=== PATIENT | female | born 1975 | race American Indian/Alaskan Native ===

== ENCOUNTER 2016-08-02 08:24 | Outpatient (CLI) | payer OTHER ==
--- NOTE | 2016-08-02 10:31 | Mammography Report ---
Screening mammogram: Baseline examination. Routine views demonstrate a heterogeneously dense fibroglandular pattern. In the superior left MLO view there is a focal density with questionable spiculation. In the right CC view there are a couple of nodules in the lateral right breast which are not clearly identified in the lateral projection. Scattered benign-appearing calcifications are present. CAD used. Impressions: Bilateral asymmetries. Recommendation: Additional compression imaging bilaterally with ultrasound, as needed. BI-RADS CATEGORY: 0 = Needs additional imaging evaluation ACR BI-RADS MAMMOGRAPHIC CODES: 0 = Needs additional imaging evaluation; 1 = Negative; 2 = Benign; 3 = Probably benign; 4 = Suspicious; 5 = Malignant; 6 = Known biopsy-proven malignancy COMMENT: 1. Dense breast tissue, i.e., adenosis, fibrocystic changes, etc., may obscure an underlying neoplasm. 2. Approximately 10% of cancers are not detected with mammography. 3. A negative mammography report should not delay biopsy if a clinically suspicious mass is present.
== END 2016-08-02 08:25 | disposition home or self-care (01) ==
LOC: SPVWC 08:24
PROVIDERS: ATTEND Family Medicine
DX: Z12.31 Encounter for screening mammogram for malignant neoplasm of breast (principal)
CPT/HCPCS: 77067; G0202

== ENCOUNTER 2016-08-24 08:05 | Outpatient (CLI) | payer OTHER ==
--- NOTE | 2016-08-24 09:39 | Mammography Report ---
Spot compression magnification of circumscribed density measuring 8 mm in diameter upper outer anterior right breast followed by sonographic examination. Spot compression magnification view of upper mid left breast density measuring 6 mm in diameter followed by sonographic examination: Sonographic examination of the entire right and left breast was performed. Findings: Right breast: On spot magnification persistence of circumscribed density noted upper outer anterior right breast without spiculation or microcalcification. Sonographic examination reveals 0.5 cm circumscribed complex cyst or lymph node at 9:00 position 5 cm from nipple which does not appear to correspond to the density seen on the mammogram. There is dilated subareolar duct noted measuring 1.5 cm in length with echogenic material within the duct probably debris. No distinct mass is seen. At the right axilla there is well defined circumscribed mass with central echogenicity probably suggestive of a lymph node or complex cyst. Left breast. On spot compression magnification view 0.6 cm circumscribed density is again identified in the upper left breast without spiculation or microcalcification. On sonographic examination there is no corresponding mass identified. On sonogram there is dilated duct noted at left breast 8:00 position 3 cm from nipple with echogenic debris within the duct. No mass. On sonogram there is benign lymph node/complex cyst noted at 8:00 position 3 cm from nipple measuring 1.1 x 0.4 cm. There is lymph node/complex cyst noted at left axilla measuring 1.3 cm in diameter. Impression: Benign-appearing densities on spot compression magnification views left breast with probably benign sonographic findings not related to density seen on mammogram. 6 month followup with mammogram and sonogram recommended. BI-RADS CATEGORY: 3 = Probably benign ACR BI-RADS MAMMOGRAPHIC CODES: 0 = Needs additional imaging evaluation; 1 = Negative; 2 = Benign; 3 = Probably benign; 4 = Suspicious; 5 = Malignant; 6 = Known biopsy-proven malignancy COMMENT: 1. Dense breast tissue, i.e., adenosis, fibrocystic changes, etc., may obscure an underlying neoplasm. 2. Approximately 10% of cancers are not detected with mammography. 3. A negative mammography report should not delay biopsy if a clinically suspicious mass is present. COMMENT: Patient follow-up letters are generated in [employer].
== END 2016-08-24 08:06 | disposition home or self-care (01) ==
LOC: SPVWC 08:05
PROVIDERS: ATTEND Family Medicine
DX: N64.89 Other specified disorders of breast (principal)
CPT/HCPCS: 76641; G0204; 77066

== ENCOUNTER 2017-03-14 08:23 | Outpatient (CLI) | payer OTHER ==
--- NOTE | 2017-03-14 12:47 | Mammography Report ---
BILATERAL DIGITAL DIAGNOSTIC MAMMOGRAM and BILATERAL BREAST ULTRASOUND: 03/14/17 08:23:00 CLINICAL: Six month followup of mammographic asymmetries and ultrasound findings COMPARISON:08/24/16 FINDINGS: Bilateral spot compression views were performed. Satisfactory placement of right asymmetries in satisfactory effacement of left upper outer asymmetries. An oval circumscribed left inner asymmetry persists with spot compression and appears to be slightly below the nipple on the MLO view. Ultrasound of the right breast demonstrated a benign intraparenchymal lymph node at 9 o'clock 7 cm from the nipple measuring 6 x 4 x 6 mm and a benign intraparenchymal lymph node at 10 o'clock 9 cm from the nipple measuring 8 x 5 x 6 mm. No solid mass or shadowing. The previous described subareolar dilated duct at 9 o'clock is not identified on this exam. Ultrasound of the left breast (including all four quadrants and the retroareolar area) was performed and demonstrated normal an oval slightly irregular complex cyst versus solid mass at 9 o'clock 4.5 cm from the nipple. It correlates with a lesion that was identified previously but has a slightly different shape. It measures 1.5 x 0.6 x 0.9 cm and also correlates with the mammographic density on today's exam. IMPRESSION: A probably benign complex cyst versus solid mass of the left breast at 9 o'clock 4 cm from the nipple. Negative right breast with 2 benign intraparenchymal lymph nodes. BI-RADS CATEGORY: 3 - - Probably Benign RECOMMENDATION: Six month followup left mammogram and left breast ultrasound. ACR BI-RADS MAMMOGRAPHIC CODES: 0 = Needs additional imaging evaluation; 1 = Negative; 2 = Benign; 3 = Probably benign; 4 = Suspicious; 5 = Malignant; 6 = Known biopsy-proven malignancy COMMENT: 1. Dense breast tissue, i.e., adenosis, fibrocystic changes, etc., may obscure an underlying neoplasm. 2. Approximately 10% of cancers are not detected with mammography. 3. A negative mammography report should not delay biopsy if a clinically suspicious mass is present. COMMENT: Patient follow-up letters are generated via our [employer] application.
== END 2017-03-14 08:24 | disposition home or self-care (01) ==
LOC: SPVWC 08:23
PROVIDERS: ATTEND Family Medicine
DX: R92.8 Other abnormal and inconclusive findings on diagnostic imaging of breast (principal)
CPT/HCPCS: 76642; G0204; 77066